=== PATIENT | female | born 1960 | race Caucasian/White ===

== ENCOUNTER 2018-08-15 12:23 | Emergency (ER) | payer BC, SELFPAY ==
[2018-08-15] VITALS (38 sets, daily range): BP systolic 126–146; BP diastolic 60–78; PULSE 87–107; RESP 10–33; TEMP 37.2; O2SAT 95–100
--- NOTE | 2018-08-15 12:27 | NUR.NOTE ---
Nursing Note: PT HAS BEEN THROWING UP for the past 2 days and states that she is withdrawing from her antidepressant medications
--- NOTE | 2018-08-15 12:43 | W.ED.GENAD ---
Discharge Plan Disposition Patient Disposition: HOME Condition: Improving Discharge Details Chief Complaint: Nausea/Vomit/Diar Clinical Impression: Nausea and vomiting, UTI (urinary tract infection) Primary Care Provider: Alexia,Local ED Provider: Sabrina Maldonado Home Meds and New Rx's Prescriptions: New ondansetron 4 mg tablet,disintegrating 4 mg PO QID PRN (Reason: nausea and vomiting) Qty: 10 RF: 0 cephalexin [Keflex] 500 mg capsule 500 mg PO BID Qty: 10 RF: 0 Continued bupropion HCl 150 MG tablet extended release 12 hr 150 mg PO BID RF: 0 sumatriptan succinate 100 mg Tablet 150 mg PO PRN PRNRF: 0 venlafaxine 150 mg Capsule,Extended Release 24hr 150 mg PO DAILY RF: 0 amitriptyline 25 mg Tablet 25 mg PO DAILY RF: 0 Discharge Instructions Instructions: Urinary Tract Infection in Women (ED), Acute Nausea and Vomiting (ED) Additional Instructions: Encourage hydration. Use Zofran as prescribed for any recurrent nausea or vomiting. Please take Keflex as prescribed for urinary tract infection. Please follow-up with primary care next week for reevaluation. If you develop fever/chills, abdominal pain, inability stay hydrated or other new/worsening symptoms please seek care urgently once again. Discharge Data Discharge Date/Time-TO BE ENTERED AT DEPARTURE: 08/15/18 16:11 Medical Decision Making Patient is a 58-year-old female presents today with chief complaint of nausea and vomiting. Patient is coming by her son. Patient appears to be having panic attack at this time. She is tachypneic, tachycardic. She is endorsing numbness in her hands and her feet. Son reports that the panic attack she exhibiting it is not unusual for her. He reports that she has multiple of these weekly and typically is able to manage his home. Their primary concern today is her nausea and vomiting. Reports that she started having nausea vomiting last night. States that she drank 1-1/2 Gatorade today, was able to hold most of this down. Is also concerned that she may be withdrawing from her antidepressants as she has been vomiting. States that she did take this morning, with several hours between untreated medications and her next episode of vomiting. She has not been around any sick contact that she is aware of. No recent travel. Abdomen is benign on exam, no peritoneal findings. Because this is likely infectious source. Will obtain laboratory evaluation to evaluate for any possible electrolyte abnormalities and hydrate the patient. Labs are concerning for an elevated anion gap of 20.4. Potassium is low at 3.1. Patient is currently receiving fluids. We will hold off on replenishing her potassium as her nausea is currently under control after IV Zofran. Patient quickly calmed down after being in the department is now cognitively appropriate. She reports that these anxiety attacks are typical for her and unchanged from her baseline. Urinalysis is concerning for UTI. Discussed these findings with patient. Advised that this may be exacerbating her chronic mental status. Plan to place her on Keflex. Patient is received 2 L of fluids, will repeat BMP Repeat BMP showed resolved elevation of anion gap as well as increased potassium. Did not replenish potassium but without treatment, is now 3.6. Discussed these findings with the patient. Advised is consistent with an acute illness as well as a UTI. Plan to treat UTI with Keflex as well as offer Zofran for any recurrence of her symptoms. She was given strict return precautions. Encourage hydration. Her son is with her and will continue to help her hydrate at home. Advise follow-up with primary care next week for reevaluation. Do not feel that the patient is withdrawing from medications given the length of time she was able to keep these down. All of her questions and concerns were addressed today and she is in agreement this plan. Patient's primary care is in [place], she prefers to keep this set up the way it is and will contact them Friday to schedule follow-up HPI General Mode of arrival: ambulatory. Date/Time Provider Initiated Documentation: 08/15/18 12:30. Limitations to Documentation: no limitations. Information obtained by: patient, family and RN notes reviewed. History of Present Illness 58 year old F presents to the emergency department with the chief complaint of nausea/vomiting, described as moderate, with intensity rated at 1 (not endorsing pain at this time). Patient started experiencing this day(s) (1) and it has been constant. No relieving factors improve symptom(s), No exacerbating factors reported . Patient notes loss of appetite, nausea/vomiting and shortness of breath (hyperventilating); denies chest pain, cough, fever/chills, headaches, malaise, rash, syncope and weakness. Patient did receive the following treatments prior to arrival, none Related Data Home Medications Medication Instructions Recorded Confirmed bupropion HCl 150 mg PO BID 04/27/17 08/15/18 amitriptyline 25 mg PO DAILY 08/15/18 08/15/18 cephalexin [Keflex] 500 mg PO BID #10 cap 08/15/18 ondansetron 4 mg PO QID PRN #10 tab 08/15/18 sumatriptan succinate 150 mg PO PRN PRN 08/15/18 08/15/18 venlafaxine 150 mg PO DAILY 08/15/18 08/15/18 Previous Rx's Medication Instructions Recorded cephalexin [Keflex] 500 mg PO BID #10 cap 08/15/18 ondansetron 4 mg PO QID PRN #10 tab 08/15/18 Allergies Allergy/AdvReac Type Severity Reaction Status Date / Time No Known Allergies Allergy Unverified 04/27/17 01:31 General Stated Complaint: Nausea/Vomit/Diar ISMA: 2 Review of Systems Constitutional Reports as per HPI, Denies chills, Denies fatigue, Denies fever(s), Denies headache(s), Denies lethargy and Reports poor appetite ENT Denies headache(s) Cardiovascular Reports as per HPI, Denies chest pain, Denies dyspnea and Denies dyspnea on exertion Respiratory Reports as per HPI, Denies cough, Denies dyspnea and Denies dyspnea on exertion Gastrointestinal Reports as per HPI, Denies abdominal pain, Denies melena, Denies change in stool character, Denies coffee ground emesis, Reports nausea, Reports vomiting and Denies hematemesis Genitourinary Reports amenorrhea (postmenopausal), Denies dysuria, Denies flank pain, Denies urinary incontinence, Reports urinary urgency and Denies vaginal discharge Musculoskeletal Reports as per HPI, Denies abnormal gait and Denies back pain Integumentary/Breasts Reports as per HPI and Denies rash Neurologic Reports as per HPI, Denies abnormal gait, Denies behavioral changes and Denies headache(s) Psychiatric Reports anxiety, Denies behavioral changes, Reports auditory hallucinations, Denies hopelessness, Reports irritability, Reports mood swings, Reports panic attacks, Denies homicidal ideation and Denies suicidal ideation Endocrine Denies fatigue [facility] Social History Smoking/Tobacco Use Status: Never Do you feel safe at home: Yes Do you feel safe in your relationship?: Yes Exam Const General: healthy appearing, well developed, well groomed, in distress severe (patient appears to be panicing, tachypnic, shaking) and anxious Nutritional Appearance: average body habitus and well nourished Orientation: alert, awake and oriented x3 HENMT Head: normal to inspection Mouth: moist mucous membranes Resp Effort & Inspection: normal respiratory effort, able to speak in complete sentences and no respiratory distress Auscultation: clear to auscultation bilaterally, no rales, no rhonchi and no wheezes Cardio Rate: regular rate Rhythm: regular rhythm Heart Sounds: S1 normal and S2 normal GI Inspection: normal to inspection, no edema, non-distended, no incisions and no visible herniation Palpation: soft, no hepatosplenomegaly, not firm, no guarding, not rigid and nontender Percussion: normal to percussion Auscultation: normal bowel sounds Back/Spine/Pelvis Back: no CVA tenderness Skin General skin exam: no rashes or lesions noted Trauma: no lacerations or abrasions Neuro General: alert and awake Cognition: normal cognition Speech: speech normal Gait: normal gait Extrem General: normal to inspection, no pedal edema, no calf tenderness and normal gait Psych Appearance: grossly normal and well kempt Mental Status: mental status grossly normal (patient is panicing) Speech and Movement: agitated, speech clear and restless Mood: anxious mood and labile mood Affect: anxious affect Attitude: cooperative and avoids eye contact Thought Process: flight of ideas Course Vital Signs Temperature 37.2 C 08/15/18 12:29 Pulse 102 H 08/15/18 12:29 Respiratory Rate 33 H 08/15/18 12:29 Blood Pressure 142/64 H 08/15/18 12:29 Pulse Oximetry 100 08/15/18 12:29 Temperature 37.2 C 08/15/18 12:29 Temperature Source Tympanic 08/15/18 12:29 Pulse 102 H 08/15/18 12:29 Respiratory Rate 33 H 08/15/18 12:29 Blood Pressure 142/64 H 08/15/18 12:29 Blood Pressure Position Sitting 08/15/18 12:29 Pulse Oximetry 100 08/15/18 12:29 Oxygen Delivery Method Room Air 08/15/18 12:29 Oxygen Flow Rate 0 08/15/18 12:29 Pain Level 0 08/15/18 12:29
[2018-08-15 12:49] LABS: Abs Immature Grans 0.03 k/cumm (0.0-0.09); Absolute Basophil Count 0.04 k/cumm (0.0-0.2); Absolute Lymphocyte Count 1.59 k/cumm (1.2-3.4); Absolute Monocyte Count 0.51 k/cumm (0.11-0.7); Absolute Neutrophil Count 8.08 k/cumm (1.2-6.7); Basophils % 0.4; HCT 38.4 % (36.0-46.0); HGB 13.9 g/dL (12.0-15.5); Immature Grans % 0.3; Lymphocytes % 15.5; Mean Corp. HGB Concentration 36.2 g/dL (32.0-36.0); Mean Corpuscular Hemoglobin 31.2 pg (27.0-33.0); Mean Corpuscular Volume 86.3 fL (80-95); Neutrophils % 78.8; Platelet Count 351 x1000/uL (130-400); RBC 4.45 m/cumm (4.00-5.20); RBC Distribution Width 12.2 % (11.7-14.6); White Blood Cell Count 10.25 k/cumm (4.4-10.8)
[2018-08-15] MEDS: Normal Saline 1,000 ML 1000 ML IV ×2 (12:49→13:56)
[2018-08-15] MEDS: LORazepam 2 MG/ML VIAL 0.5 MG IVP (12:49)
[2018-08-15] MEDS: Ondansetron 4 MG/2 ML VIAL IVP (12:49)
[2018-08-15 13:02] LABS: ALT 21 U/L (12-78); AST 14 U/L (15-37); Albumin 4.2 g/dL (3.4-5.0); Alkaline Phosphatase 120 U/L (46-116); Anion Gap 20.4 mmol/L (3-11); BUN 13 mg/dL (7-18); Bilirubin, Total 1.4 mg/dL (0.2-1.0); CO2 17.6 mmol/L (21.0-32.0); CREATININE 0.85 mg/dL (0.55-1.02); Calcium 9.7 mg/dL (8.5-10.1); Chloride 98 mmol/L (98-107); Glucose 227 mg/dL (70-100); Lipase 95 U/L (73-393); Potassium 3.1 mmol/L (3.5-5.1); Sodium 136 mmol/L (136-145); Total Protein 7.9 g/dL (6.4-8.2)
[2018-08-15 14:50] LABS: Bilirubin Negative (Negative); Blood Trace-intact (Negative); Clarity Cloudy; Glucose Negative (Negative); Ketones >=160 mg/dL (Negative); Leukocyte Esterase Trace (Negative); Nitrite Positive (Negative); Specific Gravity 1.015 (1.005-1.025); pH 8.5 (5-8)
[2018-08-15 15:05] LABS: RBC 0-2 (0-2)
[2018-08-15 15:06] LABS: Bacteria Many HPF (Negative); Crystals Moderate Amorphous HPF (Negative); Epithelial Cells Negative HPF (Negative); Mucus Negative (Negative)
[2018-08-15 15:07] LABS: C & S Indicated? Yes; Casts 0-2 Coarse Granular LPF (Negative)
[2018-08-15 15:20] LABS: Tricyclic Antidepressants POSITIVE (Negative)
[2018-08-15 15:23] LABS: *AMPHETAMINES SCREEN URINE Negative (Negative); *BARBITURATES SCREEN URINE Negative (Negative); *BENZODIAZEPINES SCREEN URINE Negative (Negative); Cannabinoids THC Negative (Negative); Cocaine Screen,Urine Negative (Negative); METHADONE URINE SCREEN Negative (Negative); OPIATES URINE SCREEN Negative (Negative)
[2018-08-15 15:40] LABS: Anion Gap 10.7 mmol/L (3-11); BUN 11 mg/dL (7-18); CO2 23.3 mmol/L (21.0-32.0); CREATININE 0.73 mg/dL (0.55-1.02); Calcium 8.3 mg/dL (8.5-10.1); Chloride 106 mmol/L (98-107); Glucose 137 mg/dL (70-100); Potassium 3.6 mmol/L (3.5-5.1); Sodium 140 mmol/L (136-145)
== END 2018-08-15 16:11 | disposition home or self-care (01) ==
PROVIDERS: Emergency Provider Physician Assistant
DX: R11.2 Nausea with vomiting, unspecified (principal); N39.0 Urinary tract infection, site not specified; B96.89 Other specified bacterial agents as the cause of diseases classified elsewhere
CPT/HCPCS: 36415; 80048; 80053; 80307; 83690; 87077; 96361; 96374; 96375; 99284; 81003; 81015; 85025; 87086; 87186; J2060; J2405

== ENCOUNTER 2018-09-29 19:40 | Emergency (ER) | payer BC, SELFPAY ==
[2018-09-29 19:49] VITALS: BP 136/82; PULSE 100; RESP 22; TEMP 37; O2SAT 99
--- NOTE | 2018-09-29 20:09 | ED.GENADUL_ITS ---
Discharge Plan Disposition Patient Disposition: HOME Condition: Good Discharge Details Chief Complaint: Nk/Back Pain Clinical Impression: Lumbago Primary Care Provider: Alexia,Local ED Provider: Jeromy Osman Home Meds and New Rx's Prescriptions: No Action bupropion HCl 150 MG tablet extended release 12 hr 150 mg PO BID RF: 0 sumatriptan succinate 100 mg Tablet 150 mg PO PRN PRNRF: 0 venlafaxine 150 mg Capsule,Extended Release 24hr 150 mg PO DAILY RF: 0 amitriptyline 25 mg Tablet 25 mg PO DAILY RF: 0 ondansetron 4 mg tablet,disintegrating 4 mg PO QID PRN (Reason: nausea and vomiting) Qty: 10 RF: 0 cephalexin [Keflex] 500 mg capsule 500 mg PO BID Qty: 10 RF: 0 HPI General Date/Time Provider Initiated Documentation: 09/29/18 19:53 . Related Data Home Medications Medication Instructions Recorded Confirmed bupropion HCl 150 mg PO BID 04/27/17 08/15/18 amitriptyline 25 mg PO DAILY 08/15/18 08/15/18 cephalexin [Keflex] 500 mg PO BID #10 cap 08/15/18 ondansetron 4 mg PO QID PRN #10 tab 08/15/18 sumatriptan succinate 150 mg PO PRN PRN 08/15/18 08/15/18 venlafaxine 150 mg PO DAILY 08/15/18 08/15/18 Previous Rx's Medication Instructions Recorded cephalexin [Keflex] 500 mg PO BID #10 cap 08/15/18 ondansetron 4 mg PO QID PRN #10 tab 08/15/18 Allergies Allergy/AdvReac Type Severity Reaction Status Date / Time No Known Allergies Allergy Unverified 04/27/17 01:31 General Stated Complaint: Nk/Back Pain ISMA: 4 PFSH Social History Smoking/Tobacco Use Status: Never Alcohol Intake: never Drug use: Never Substance use type: does not use Do you feel safe at home: Yes Do you feel safe in your relationship?: Yes Course Vital Signs Temperature 37.0 C 09/29/18 19:49 Pulse 100 H 09/29/18 19:49 Respiratory Rate 22 09/29/18 19:49 Blood Pressure 136/82 09/29/18 19:49 Pulse Oximetry 99 09/29/18 19:49 Temperature 37.0 C 09/29/18 19:49 Temperature Source Oral 09/29/18 19:49 Pulse 100 H 09/29/18 19:49 Respiratory Rate 22 09/29/18 19:49 Respiratory Effort Non-Labored 09/29/18 19:49 Blood Pressure 136/82 09/29/18 19:49 Blood Pressure Position Supine 09/29/18 19:49 Pulse Oximetry 99 09/29/18 19:49 Oxygen Delivery Method Room Air 09/29/18 19:49 Oxygen Flow Rate 0 09/29/18 19:49
[2018-09-29] MEDS: Lidocaine 5% Patch 1 PATCH TP (20:19)
[2018-09-29] MEDS: Cyclobenzaprine 10 MG TAB PO (20:19)
--- NOTE | 2018-09-29 20:24 | ED.GENADUL_ITS ---
Discharge Plan Disposition Patient Disposition: HOME Condition: Good Discharge Details Chief Complaint: Nk/Back Pain Clinical Impression: Lumbago Primary Care Provider: Alexia,Local ED Provider: Jeromy Osman Home Meds and New Rx's Prescriptions: New lidocaine [Lidoderm] 1 PATCH patch 1 patch Topical Q24H Qty: 7 RF: 0 cyclobenzaprine 10 mg tablet 10 mg PO TID Qty: 60 RF: 0 No Action bupropion HCl 150 MG tablet extended release 12 hr 150 mg PO BID RF: 0 sumatriptan succinate 100 mg Tablet 150 mg PO PRN PRNRF: 0 venlafaxine 150 mg Capsule,Extended Release 24hr 150 mg PO DAILY RF: 0 amitriptyline 25 mg Tablet 25 mg PO DAILY RF: 0 ondansetron 4 mg tablet,disintegrating 4 mg PO QID PRN (Reason: nausea and vomiting) Qty: 10 RF: 0 cephalexin [Keflex] 500 mg capsule 500 mg PO BID Qty: 10 RF: 0 Discharge Instructions Instructions: Low Back Strain (ED) Additional Instructions: You have a suspected strain of your lower back. Please use a heating pad as often as possible on your back. Please take the Lidoderm patch, and Flexeril as directed. Do not perform any driving, biking, shooting, or operating of any heavy machinery or swimming while on the Flexeril. Please take 1000 mg of Tylenol every 6 hours and 600 to 800 mg of ibuprofen every 6 hours to help with the pain and swelling. Please do not lift anything heavier than 3 to 5 pounds for the next 1 to 2 weeks. Please do mild stretches of your back forwards, backwards, left and right every 2-3 hours 5-6 times per day. If you notice any worsening of your symptoms, or any new symptoms such as numbness or tingling in your groin, weakness in your legs, inability to have a bowel or bladder movement, or loss of control of your bowels or bladder, vomiting, diarrhea, fever, chills, shortness of breath, chest pain, numbness, weakness, or fainting , please return immediately to the emergency department for reevaluation. Please follow up with your primary care provider as soon as possible for reassessment and reevaluation. As always, it was a pleasure participating in your medical care today. Medical Decision Making This is a pleasant 58-year-old female who presents today for evaluation of left-sided back pain. She was doing a significant amount of moving yesterday, she had no focal event that started her pain. She was fatigued and tired last night, but when she woke up this morning she demonstrated notable soreness in her left back. Worse with movement. No red flags of bowel or bladder incontinence, signs and symptoms are clinically consistent with cauda equina syndrome. No red flags of IV illicit drug use, trauma, or falls. Normal sensation normal reflexes throughout. Signs and symptoms are clinically consistent with musculoskeletal back sprain. We will give Lidoderm patch, Tylenol, Motrin, and Flexeril. We discussed red flags for when to not take Flexeril and the symptoms that he could cause. We discussed the importance of PCP follow-up, as well as red flags which to return. I have extensively reviewed the treatment plan and discharge instructions with the patient and their family. I have addressed all patient concerns at this time. The patient and family was made aware of what symptoms to monitor for that would warrant a return to the emergency department. Discussed the plan with the patient and family, they demonstrate verbal understanding and agreement with our assessment and plan at this time. HPI General Date/Time Provider Initiated Documentation: 09/29/18 19:53 . HPI Narrative: This is a 58-year-old female who presents for evaluation of left back pain. Patient states that yesterday she was moving a significant amount of furniture and possessions at her apartment, things are fine yesterday but she was notably tired with the fatigue back. This morning when she woke up she had an extremely stiff and painful back, primarily on the left. Is worse with movement. She had no associated numbness tingling or weakness. No radiation down the legs. She denies any falls, trauma, dysuria, hematuria, bowel or bladder incontinence, numbness tingling or weakness. She denies any IV or illicit drug use or fever. She denies any history of previous back injuries. She has no other complaints modifying factors. She has not taken any medications at this time for treatment. She denies any recent surgeries or pertinent family history. Related Data Home Medications Medication Instructions Recorded Confirmed bupropion HCl 150 mg PO BID 04/27/17 08/15/18 amitriptyline 25 mg PO DAILY 08/15/18 08/15/18 cephalexin [Keflex] 500 mg PO BID #10 cap 08/15/18 ondansetron 4 mg PO QID PRN #10 tab 08/15/18 sumatriptan succinate 150 mg PO PRN PRN 08/15/18 08/15/18 venlafaxine 150 mg PO DAILY 08/15/18 08/15/18 cyclobenzaprine 10 mg PO TID #60 tab 09/29/18 lidocaine [Lidoderm] 1 patch TOPICAL Q24H #7 patch 09/29/18 Previous Rx's Medication Instructions Recorded cephalexin [Keflex] 500 mg PO BID #10 cap 08/15/18 ondansetron 4 mg PO QID PRN #10 tab 08/15/18 cyclobenzaprine 10 mg PO TID #60 tab 09/29/18 lidocaine [Lidoderm] 1 patch TOPICAL Q24H #7 patch 09/29/18 Allergies Allergy/AdvReac Type Severity Reaction Status Date / Time No Known Allergies Allergy Unverified 04/27/17 01:31 General Stated Complaint: Nk/Back Pain ISMA: 4 Review of Systems Review of Systems All systems reviewed & are unremarkable except as noted in HPI and below PFSH Social History Smoking/Tobacco Use Status: Never Alcohol Intake: never Drug use: Never Substance use type: does not use Do you feel safe at home: Yes Do you feel safe in your relationship?: Yes Exam Narrative Exam Narrative: 1.Const: Well-nourished, Well-developed, appearing stated age 2.Eyes: PERRL, no conjunctival injection, and symmetrical lids. 3.ENT: Atraumatic external nose and ears. Moist MM. Neck: Symmetric, trachea midline, No thyromegaly. 4.CVS: +S1/S2, No murmurs or gallops. Peripheral pulses 2+ and equal in all extremities. Brisk capillary refill in all extremities. 5.RESP: Unlabored respiratory effort. Clear to auscultation bilaterally. No wheezes rales or rhonchi 6.GI: Soft, Nontender/Nondistended, No hepatosplenomegaly. No guarding or rebound. No significant flank or CVA tenderness. 7.MSK: Normocephalic/Atraumatic, Extremities w/o deformity or ttp No cyanosis or clubbing, Normal movement of all extremities. No midline tenderness to palpation over the CTLS spine. Notable left-sided paraspinal tenderness and spasm. Normal ROM in flexion, extension, side bend, and rotation. Patient has +5 out of 5 strength in the lower extremities in dorsiflexion and plantarfle xion, knee flexion and extension, hip flexion and extension. There is +2 over 2 dorsalis pedis pulses bilaterally. There is normal sensation to the skin with light touch at the foot, knee, and hip. Normal saddle sensation. Good sensation over the deep sural nerve area bilaterally. Rectal exam demonstrates normal rectal tone and normal perirectal sensation. Reflexes are +2 over 4 in the patellar reflex bilaterally. Normal strength for dorsiflexion of the great toe +5 out of 5 strength in the medial, ulnar, radial nerve distribution bilaterally in the hands as well as intact light touch sensation to these dermatomes on the hands 8.Skin: Warm, Dry. No rashes or lesions. 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 Sensation grossly intact, no focal neurologic deficits. 10.Psych: (AAO) x3. Appropriate mood and affect Course Vital Signs Temperature 37.0 C 09/29/18 19:49 Pulse 100 H 09/29/18 19:49 Respiratory Rate 22 09/29/18 19:49 Blood Pressure 136/82 09/29/18 19:49 Pulse Oximetry 99 09/29/18 19:49 Temperature 37.0 C 09/29/18 19:49 Temperature Source Oral 09/29/18 19:49 Pulse 100 H 09/29/18 19:49 Respiratory Rate 22 09/29/18 19:49 Respiratory Effort Non-Labored 09/29/18 19:49 Blood Pressure 136/82 09/29/18 19:49 Blood Pressure Position Supine 09/29/18 19:49 Pulse Oximetry 99 09/29/18 19:49 Oxygen Delivery Method Room Air 09/29/18 19:49 Oxygen Flow Rate 0 09/29/18 19:49
--- NOTE | 2018-10-02 09:35 | NUR.NOTE ---
Nursing Note: Patient called stating that the pain is not getting better and that it is getting worse and she would like to get just an xray. Consulted with Iliana Arauz RN and told the patient that due to increasing pain that she needed to be return to the ED for re-evaluation. Patient stated that she understood. Elizabeth Garza.
== END 2018-09-29 20:20 | disposition home or self-care (01) ==
PROVIDERS: Emergency Provider Student in an Organized Health Care Education/Training Program
DX: M54.5 Low back pain (principal)
CPT/HCPCS: 99283

== ENCOUNTER 2018-10-02 10:44 | Emergency (ER) | payer BC, SELFPAY ==
[2018-10-02 10:47] VITALS: BP 133/75; PULSE 101; RESP 16; TEMP 36.7; O2SAT 96
--- NOTE | 2018-10-02 12:30 | DI.RAD_ITS ---
SYMPTOMS/DIAGNOSIS: TRAUMA, POSTERIOR RIB PAIN T7-10 LEFT RIBS AND PA AND LATERAL: No priors. The heart size and pulmonary vasculature are within normal limits. The lungs are clear. No pneumothorax. There is small left pleural effusion. There is a nondisplaced fracture of the posterolateral aspect of the left ninth rib. IMPRESSION: 1. Nondisplaced fracture of the posterolateral aspect of the left ninth rib. 2. Small left pleural effusion. 3. No evidence of a pneumothorax.
--- NOTE | 2018-10-02 13:10 | NUR.NOTE ---
Nursing Note: pt requesting muscle relaxers. MARKETING RESEARCHER notified, states that he wants to wait for DI report.
[2018-10-02] MEDS: Ketorolac 60 MG/2 ML VIAL IM (13:25)
[2018-10-02] MEDS: Bupivacaine 0.25% Pres-Free 30 ML VIAL (15:00)
[2018-10-02] MEDS: Lidocaine 1% Multi-Dose 50 ML VIAL (15:00)
[2018-10-02] MEDS: Bupivacaine LIPOSOME/PF 133 MG/10 ML VIAL IJ (15:00)
--- NOTE | 2018-10-02 15:00 | NUR.NOTE ---
Nursing Note: Anesthesia at bedside for rib block
--- NOTE | 2018-10-02 15:16 | ED.GENADUL_ITS ---
Discharge Plan Disposition Patient Disposition: HOME Condition: Stable Discharge Details Chief Complaint: Nk/Back Pain Clinical Impression: Fracture of rib Primary Care Provider: Alexia,Local ED Provider: Homero Lin Home Meds and New Rx's Prescriptions: Continued cyclobenzaprine 10 mg tablet 10 mg PO TID Qty: 60 RF: 0 bupropion HCl 150 MG tablet extended release 12 hr 300 mg PO BID RF: 0 sumatriptan succinate 100 mg Tablet 150 mg PO PRN PRNRF: 0 venlafaxine 150 mg Capsule,Extended Release 24hr 75 mg PO DAILY RF: 0 amitriptyline 25 mg Tablet 25 mg PO DAILY RF: 0 Changed lidocaine [Lidoderm] 1 PATCH patch 1 patch Topical Q24H PRN (Reason: pain) Qty: 15 RF: 0 Discharge Instructions Instructions: Rib Fracture (ED) Additional Instructions: Please continue to take [id number] pain medication as needed and use Lidoderm patches for discomfort. Apply these to the most area of pain and allow to leave on for 12 hours at a time and then remove for 12 hours. If you start having fever chills, shortness of breath, or any worsening of symptoms feel free to return the emergency department for reassessment. Otherwise follow-up with your primary care provider as needed. Referrals: Primary Care Provider [Outside] (As needed for reassessment) Discharge Data Discharge Date/Time-TO BE ENTERED AT DEPARTURE: 10/02/18 16:10 Medical Decision Making Fall 4 days ago, patient came to the emergency department for complaint of back pain, was placed on Flexeril and lidocaine patch with [id number] pain medication which is not been helping. Patient continues to have pain and discomfort to posterior back. Patient has tenderness to posterior thoracic ribs T7-10 with point tenderness approximately 8 9. Lung sounds are clear, otherwise unremarkable exam. Plan to do radiological imaging for evaluation of possible rib fracture. Review of radiological imaging and radiologist interpretation shows a nondisplaced rib fracture of T9 posteriorly and very small pleural effusion. Given patient's significant amount of pain she was given IM Toradol and anesthesia was consulted for consideration of rib block. Anesthesia came down and consented patient for anesthesia block to help with discomfort. Rib block was performed and patient had significant reduction of pain. Did discuss with patient continued use of [id number]-fvk-eypyptj pain medication and prescribed lidocaine patches as needed for her continued discomfort once block wears off. Return precautions were discussed. After discussion of diagnosis and plan of care patient has no further needs, questions, or concerns and states clear understanding to return to the emergency department for any worsening symptoms. HPI General Mode of arrival: ambulatory . Date/Time Provider Initiated Documentation: 10/02/18 11:27 . Limitations to Documentation: no limitations . Information obtained by: patient, RN notes reviewed and old records reviewed . History of Present Illness 58 year old F presents to the emergency department with the chief complaint of Back pain, described as moderate, with intensity rated at 9. Quality is described as aching and sharp, and is localized to the back (right side). Patient started experiencing this day(s) (4) and it has been constant. Rest improves symptom(s), Movement worsens symptoms . Patient notes no other symptoms.. Patient did receive the following treatments prior to arrival, NSAID Related Data Home Medications Medication Instructions Recorded Confirmed bupropion HCl 300 mg PO BID 04/27/17 10/02/18 amitriptyline 25 mg PO DAILY 08/15/18 10/02/18 sumatriptan succinate 150 mg PO PRN PRN 08/15/18 10/02/18 venlafaxine 75 mg PO DAILY 08/15/18 10/02/18 cyclobenzaprine 10 mg PO TID #60 tab 09/29/18 10/02/18 lidocaine [Lidoderm] 1 patch TOPICAL Q24H PRN #15 each 10/02/18 Previous Rx's Medication Instructions Recorded cyclobenzaprine 10 mg PO TID #60 tab 09/29/18 lidocaine [Lidoderm] 1 patch TOPICAL Q24H PRN #15 each 10/02/18 Allergies Allergy/AdvReac Type Severity Reaction Status Date / Time No Known Allergies Allergy Unverified 04/27/17 01:31 General Stated Complaint: Nk/Back Pain ISMA: 3 Review of Systems Constitutional Denies chills and Denies fever(s) Cardiovascular Denies chest pain and Denies dyspnea on exertion Respiratory Denies cough and Denies dyspnea on exertion Gastrointestinal Denies abdominal pain, Denies change in bowel habits, Denies diarrhea and Denies vomiting Genitourinary Denies difficulty voiding and Denies urinary incontinence Musculoskeletal Reports as per HPI and Reports back pain Neurologic Denies sensory deficit PFSH Social History (Reviewed 10/05/18 @ 11:16 by DEE Queen Smoking/Tobacco Use Status: Never Alcohol Intake: never Drug use: Never Substance use type: does not use Do you feel safe at home: Yes Do you feel safe in your relationship?: Yes Exam Const General: cooperative and healthy appearing Orientation: alert, awake and oriented x3 Neck Neck: full ROM Resp Effort & Inspection: normal respiratory effort Auscultation: clear to auscultation bilaterally Cardio Rate: regular rate Rhythm: regular rhythm Heart Sounds: S1 normal and S2 normal Back/Spine/Pelvis Cervical Spine: normal cervical lordosis Thoracic/Lumbar Spine: pain with thoraco-lumbar ROM, paraspinal tenderness (Right lower thoracic spine), thoracic spinal tenderness and other (Posterior lower right rib tenderness to palpation) Pelvis: no pain with anterior-posterior compression, no pain with lateral compression, no buttock tenderness and no sciatic notch tenderness Course Vital Signs Temperature 36.7 C 10/02/18 10:47 Pulse 101 H 10/02/18 10:47 Respiratory Rate 16 10/02/18 10:47 Blood Pressure 133/75 10/02/18 10:47 Pulse Oximetry 96 10/02/18 10:47 Temperature 36.7 C 10/02/18 10:47 Temperature Source Skin 10/02/18 10:47 Pulse 101 H 10/02/18 10:47 Respiratory Rate 16 10/02/18 10:47 Blood Pressure 133/75 10/02/18 10:47 Blood Pressure Position Sitting 10/02/18 10:47 Pulse Oximetry 96 10/02/18 10:47 Oxygen Delivery Method Room Air 10/02/18 10:47 Oxygen Flow Rate 0 10/02/18 10:47 Pain Level 2 10/02/18 10:47 Comment 10/02/18 10:47
== END 2018-10-02 16:10 | disposition home or self-care (01) ==
PROVIDERS: Emergency Provider Nurse Practitioner Family
DX: S22.32XA Fracture of one rib, left side, initial encounter for closed fracture (principal); W01.0XXA Fall on same level from slipping, tripping and stumbling without subsequent striking against object, initial encounter
CPT/HCPCS: 64450; 76942; 96374; 99284; 71046; 71100; J1885

== ENCOUNTER 2019-09-30 00:30 | Emergency (ER) | payer BC, SELFPAY ==
[2019-09-30 00:28] VITALS: BP 128/76; PULSE 79; RESP 16; TEMP 36.5; O2SAT 100
--- NOTE | 2019-09-30 00:35 | ED.GENADUL_ITS ---
Discharge Plan Disposition Patient Disposition: HOME Condition: Stable Discharge Details Chief Complaint: Laceration Clinical Impression: Alcohol intoxication, Fall, Face lacerations Primary Care Provider: Alexia,Local ED Provider: Edi Carson Home Meds and New Rx's Prescriptions: Continued cyclobenzaprine 10 mg tablet 10 mg PO TID Qty: 60 RF: 0 buspirone 5 mg Tablet 5 mg PO TID RF: 0 bupropion HCl 150 MG tablet extended release 12 hr 300 mg PO BID RF: 0 sumatriptan succinate 100 mg Tablet 150 mg PO PRN PRNRF: 0 venlafaxine 150 mg Capsule,Extended Release 24hr 75 mg PO DAILY RF: 0 amitriptyline 25 mg Tablet 25 mg PO DAILY RF: 0 Discharge Instructions Instructions: Concussion (ED), Facial Laceration (ED) Additional Instructions: your cat scans did not reveal any concerning traumatic injuries return in 7-10 days for evaluation for suture removal do not drink alcohol with alprazolam or other sedating medications return to the emergency department for severe worsening pain, persistent vomit or difficulty breathing Medical Decision Making 59 yo female with hx of anxiety comes in after she had a few beers and took 1 of her alprazolam, was getting out of the shower when she fell. She arrives with EMS and is slurring her speech with smell of alcohol on her breath, does know her name year and where she is. HAs no focal motor or sensation deficits. Has skin abrasion over right judaism, no deep lacerations PERRL, eomi. Nochest tenderness, back tenderness abd tenderness or arm or leg tenderness. Given her fall with head injury will obtain ct head, face and c spine and also evaluate her alcohol level and evaluate for possible electrolyte abnormalities labs show etoh over [address] shows no acute findings. Her woud on her face after cleaning does reveal a 1cm laceration just lateral to the right orbit which I will close with sutures. Will d/c home in care of her son Differential Diagnosis Differential Diagnosis: alcohol intoxication, tbi,electrolyte abnormality Imaging Data Radiologic Study: Attestation: I personally reviewed and interpreted this imaging study as follows: Imaging: CT Scan Radiologist's impression: no acute findings Lab Data Lab results reviewed: Yes I reviewed the patient's lab results. HPI General Mode of arrival: EMS . Date/Time Provider Initiated Documentation: 07/30/20 00:33 . Limitations to Documentation: no limitations . Information obtained by: patient . History of Present Illness 59 year old F presents to the emergency department with the chief complaint of fall, described as moderate, and it has been constant. No relieving factors improve symptom(s), No exacerbating factors reported . Patient did receive the following treatments prior to arrival, none Related Data Home Medications Medication Instructions Recorded Confirmed bupropion HCl 300 mg PO BID 04/27/17 09/30/19 amitriptyline 25 mg PO DAILY 08/15/18 09/30/19 sumatriptan succinate 150 mg PO PRN PRN 08/15/18 09/30/19 venlafaxine 75 mg PO DAILY 08/15/18 09/30/19 cyclobenzaprine 10 mg PO TID #60 tab 09/29/18 09/30/19 buspirone 5 mg PO TID 09/30/19 09/30/19 Previous Rx's Medication Instructions Recorded cyclobenzaprine 10 mg PO TID #60 tab 09/29/18 Allergies Allergy/AdvReac Type Severity Reaction Status Date / Time No Known Allergies Allergy Unverified 04/27/17 01:31 General ISMA: 3 Review of Systems All systems reviewed & are unremarkable except as noted in HPI and below Constitutional Constitutional: Denies chills, Denies fever(s) and Denies weakness Cardiovascular Cardiovascular: Denies chest pain and Denies dyspnea Respiratory Respiratory: Denies cough and Denies dyspnea Gastrointestinal Gastrointestinal: Denies abdominal pain, Denies nausea and Denies vomiting Genitourinary Genitourinary: Denies dysuria Musculoskeletal Musculoskeletal: Denies joint swelling Integumentary/Breasts Skin/Breast: Denies rash Neurologic Neurologic: Denies weakness Psychiatric Psychiatric: Denies depression [facility] Social History Smoking/Tobacco Use Status: Never Alcohol Intake: current Alcohol type: beer Drug use: Never Substance use type: does not use Do you feel safe at home: Yes Do you feel safe in your relationship?: Yes Exam Const General: no acute distress Orientation: alert HENMT Head: no palpable skull fracture Ears: external ears normal General nose exam: external nose normal Mouth: moist mucous membranes Eyes General: appearance normal, both eyes and all related structures Neck Neck: normal visual inspection Resp Effort & Inspection: normal respiratory effort and able to speak in complete sentences Cardio Rate: regular rate Skin General skin exam: no rashes or lesions noted Neuro General: patient alert Extrem General: normal to inspection Psych Mental Status: mental status grossly normal Procedures Laceration Laceration 1: Site: face Side (If applicable): right Size (cm): 1 Description: linear Depth: simple, single layer Local Anesthetic: Lidocaine 2% Amount of anesthesia used (mL): 4 Pre-repair: wound explored and irrigated extensively Skin layer closed with: nylon Size (cm): 5-0 Number of sutures: 3
[2019-09-30 00:51] LABS: Abs Immature Grans 0.02 10^3/uL (0.0-0.06); Absolute Basophil Count 0.05 10^3/uL (0.0-0.2); Absolute Eosinophil Count 0.22 10^3/uL (0.0-0.7); Absolute Lymphocyte Count 2.17 10^3/uL (1.2-3.4); Absolute Neutrophil Count 5.88 10^3/uL (1.2-6.7); Basophils % 0.6; Eosinophils % 2.5; HCT 38.4 % (36.0-46.0); HGB 13.3 g/dL (11.2-15.7); Immature Grans % 0.2; Lymphocytes % 24.5; MCH 31.5 pg (27.0-33.0); MCHC 34.6 % (32.0-36.0); MPV 9.2 fL (8.0-11.0); Monocytes % 5.7; Neutrophils % 66.5; Platelet Count 278 10^3/uL (130-400); RBC 4.22 10^6/uL (3.93-5.22); RDW 12.3 % (11.7-14.6); RDW-SD 40.7 fL; WBC 8.84 10^3/uL (4.4-10.8)
--- NOTE | 2019-09-30 00:55 | NUR.NOTE ---
Addendum entered by Varsha Bergeron 09/30/19 01:10: correction Kiran phone number [phone] Original Note: Son Kiran [phone]
--- NOTE | 2019-09-30 01:01 | DI.CT_ITS ---
EXAM: CT HEAD CERV SPINE FACIAL WO CLINICAL HISTORY: fall, altered, pain. TECHNIQUE: Imaging Protocol: Axial computed tomography images with coronal and sagittal reformatted images were created and reviewed COMPARISON: No exams were available for comparison FINDINGS: CT Head: Ventricles and Extra axial spaces: Normal in size and morphology for the patient's age. Hemorrhage: None. Cerebral parenchyma: Normal. Midline shift: None. Brainstem/Cerebellum: Normal. Calvarium: Normal. Visualized Paranasal sinuses/Mastoids: Clear. Soft Tissues: Unremarkable. CT Face: Facial Bones: No definite fracture is noted in facial bones. Sinuses and Mastoids: Unremarkable. Globes, extraocular muscles, optic nerves and retrobulbar fat: Normal. Upper aerodigestive tract: Normal. Mandible and bilateral temporomandibular joints: Normal. Soft tissues: There is mild swelling over the right orbit and right zygoma. CT Cervical Spine: Bones: No acute fracture or subluxation. Soft Tissues: Unremarkable. IMPRESSION: 1. No acute intracranial process. 2. No acute fracture or subluxation in the cervical spine. 3. No acute facial fracture. RADIATION DOSE DELIVERED: 1,857.06mGy.cm DATA REPOSITORY: All CT scans at this facility are submitted to the National Radiology Data Registry (NRDR) Dose Index Registry (DIR) with the [employer] ([employer]). RADIATION OPTIMIZATION: All CT scans at this facility use at least one of these dose optimization te chniques: automated exposure control; mA and/or kV adjustment per patient size (includes targeted exa ms where dose is matched to clinical indication); or iterative reconstruction.
[2019-09-30 01:04] LABS: PTT Activated 25.2 sec (21.0-31.4); Prothrombin Time 10.1 sec (9.3-11.0)
[2019-09-30 01:14] LABS: ALT 22 U/L (14-59); AST 23 U/L (15-37); Albumin 3.9 g/dL (3.4-5.0); Alkaline Phosphatase 90 U/L (46-116); Anion Gap 11.3 mmol/L (3-11); BUN 11 mg/dL (7-18); Bilirubin, Total 0.5 mg/dL (0.2-1.0); CO2 27.7 mmol/L (21.0-32.0); CREATININE 0.82 mg/dL (0.55-1.02); Calcium 9.2 mg/dL (8.5-10.1); Chloride 99 mmol/L (98-107); ETHANOL BLOOD 255.3 mg/dL (<3); Glucose 122 mg/dL (74-106); Potassium 3.5 mmol/L (3.5-5.1); Sodium 138 mmol/L (136-145); Total Protein 7.4 g/dL (6.4-8.2)
[2019-09-30 01:16] LABS: Creatine Kinase 110 U/L (26-192)
--- NOTE | 2019-09-30 01:34 | NUR.NOTE ---
pt arrives with bag of medications. states she took a xanax and drank 6 beers tonight. Pt noted to have a bottle of xanax 2mg tabs in med bag for a pet, Rayna Penn. Spoke with pt son Kiran to updte on plan. He states pt had no c/o today, she starts to slur her speech after she takes her meds and has some drinks, tonight was worse than usual.
--- NOTE | 2019-09-30 01:42 | DI.VRAD_ITS ---
PROCEDURE INFORMATION: Exam: CT Head Without Contrast Exam date and time: 09/30/2019 12:35 AM Age: 59 years old Clinical indication: Injury or trauma; Fall; Initial encounter; Consciousness not specified; Blunt trauma (contusions or hematomas) and laceration; Orbit/periorbital; Right; Without residual foreign body; Injury date: 09/30/19; Injury details: Altered mental status TECHNIQUE: Imaging protocol: Computed tomography of the head without contrast. Radiation optimization: All CT scans at this facility use at least one of these dose optimization techniques: automated exposure control; mA and/or kV adjustment per patient size (includes targeted exams where dose is matched to clinical indication); or iterative reconstruction. COMPARISON: No relevant prior studies available. FINDINGS: Brain: Normal. No hemorrhage. Unremarkable white matter. No mass effect. Ventricles: Normal. No ventriculomegaly. Bones/joints: Unremarkable. No acute fracture. Sinuses: Visualized sinuses are unremarkable. No fluid levels. Mastoid air cells: Visualized mastoid air cells are well aerated. Soft tissues: Unremarkable. IMPRESSION: No acute intracranial abnormality. PROCEDURE INFORMATION: Exam: CT Maxillofacial Without Contrast Exam date and time: 09/30/2019 12:35 AM Age: 59 years old Clinical indication: Injury or trauma; Fall; Initial encounter; Consciousness not specified; Blunt trauma (contusions or hematomas) and laceration; Orbit/periorbital; Right; Without residual foreign body; Injury date: 09/30/19; Injury details: Altered mental status TECHNIQUE: Imaging protocol: Computed tomography images of the face without contrast. Radiation optimization: All CT scans at this facility use at least one of these dose optimization techniques: automated exposure control; mA and/or kV adjustment per patient size (includes targeted exams where dose is matched to clinical indication); or iterative reconstruction. COMPARISON: No relevant prior studies available. FINDINGS: Orbits: Orbits are normal. Globes are unremarkable. Bones/joints: No acute fracture. Sinuses: Normal. No air-fluid levels. Soft tissues: Mild soft tissue edema and hemorrhage is seen along the right lateral orbit. IMPRESSION: Mild soft tissue edema and hemorrhage along the right lateral orbit without evidence for an injury to the intraorbital contents. No evidence for acute maxillofacial fracture. PROCEDURE INFORMATION: Exam: CT Cervical Spine Without Contrast Exam date and time: 09/30/2019 12:35 AM Age: 59 years old Clinical indication: Injury or trauma; Fall; Initial encounter; Consciousness not specified; Blunt trauma (contusions or hematomas) and laceration; Orbit/periorbital; Right; Without residual foreign body; Injury date: 09/30/19; Injury details: Altered mental status TECHNIQUE: Imaging protocol: Computed tomography images of the cervical spine without contrast. Radiation optimization: All CT scans at this facility use at least one of these dose optimization techniques: automated exposure control; mA and/or kV adjustment per patient size (includes targeted exams where dose is matched to clinical indication); or iterative reconstruction. COMPARISON: No relevant prior studies available. FINDINGS: Vertebrae: No acute fracture. Normal alignment. Discs/Spinal canal/Neural foramina: Diffuse cervical spondylosis is seen, most pronounced at C4-C5 and C5-C6, where severe bilateral neural foraminal stenosis is present. No evidence for spinal canal stenosis at any level. Soft tissues: Unremarkable. Lungs: Lung apices are normal. IMPRESSION: No evidence for acute fracture within the cervical spine. Dictated and Authenticated by: Shani Nowak MD. Ordering:DONIS Daley MD
[2019-09-30 02:46] VITALS: BP 128/68; PULSE 82; RESP 16; O2SAT 95
--- NOTE | 2019-09-30 02:49 | NUR.NOTE ---
wound sutured by MD Carson. Son Kiran in to vegetable picker pt. DC instructions reviewed with kiran. to exit via [place].
== END 2019-09-30 02:40 | disposition home or self-care (01) ==
PROVIDERS: Emergency Provider Emergency Medicine
DX: S01.111A Laceration without foreign body of right eyelid and periocular area, initial encounter (principal); S09.90XA Unspecified injury of head, initial encounter; W19.XXXA Unspecified fall, initial encounter; F10.120 Alcohol abuse with intoxication, uncomplicated; Y90.8 Blood alcohol level of 240 mg/100 ml or more
CPT/HCPCS: 12011; 36415; 80053; 82550; 90471; 99284; 70450; 70486; 72125; 80320; 85025; 85610; 85730; 99282

== ENCOUNTER 2020-10-05 01:01 | Emergency (ER) | payer BC, SELFPAY ==
[2020-10-05] VITALS (58 sets, daily range): BP systolic 80–159; BP diastolic 50–115; PULSE 68–89; RESP 0–21; TEMP 36.3; O2SAT 94–100
--- NOTE | 2020-10-05 00:45 | RT.EKG_ITS ---
APPROVED REPORT Exam: Resting ECG Reason for Exam: TCA overdose Patient Location: E HR:77 bpm ECG Measurements Heart Rate 77 AXIS MI 189 P 63 QRSd 103 QRS 45 QT 397 T 58 QTc 448 Conclusion Sinus rhythm...normal P axis, V-rate 60- 99. No STEMI. QRS 103. I have reviewed and interpreted ECG and agree with software generated interpretation.
--- NOTE | 2020-10-05 00:56 | W.ED.GENAD ---
Discharge Plan Disposition Patient Disposition: [facility] Condition: Critical Discharge Details Clinical Impression: TCA (tricyclic antidepressant) overdose of undetermined intent, Acute respiratory failure, Unresponsive, Abnormal ECG Primary Care Provider: Alexia,Local ED Provider: Marleny Marmolejo Home Meds and New Rx's Prescriptions: No Action cyclobenzaprine 10 mg tablet 10 mg PO TID Qty: 60 RF: 0 buspirone 5 mg Tablet 5 mg PO TID RF: 0 bupropion HCl 150 MG tablet extended release 12 hr 300 mg PO BID RF: 0 sumatriptan succinate 100 mg Tablet 150 mg PO PRN PRNRF: 0 venlafaxine 150 mg Capsule,Extended Release 24hr 75 mg PO DAILY RF: 0 amitriptyline 25 mg Tablet 25 mg PO DAILY RF: 0 Medical Decision Making 0100 -- 60-year-old female with a history of depression and previous suicide attempts presents per EMS after possible amitriptyline overdose. Per EMS arrival, patient initially was reported to be confused but talking to family but became unresponsive in route. Vitals within normal limits on arrival. Poor gag reflex. Pupils 2 to 3 mm. She is unresponsive and unable to answer questions. Oxygen saturation high 80s to low 90s, will place on nasal cannula oxygen with low threshold for intubation. ABG notes a pH of 7.2, PCO2 68.5, PO2 232. Patient given 0.4 mg Narcan IV x1 without response. Discussed with daughter and family friend in the waiting room and they state they found her with an empty bottle of amitriptyline nearby with the rest of her meds inside a bag. They are not aware of any alcohol or other drug use. 0130 -- Labs reviewed. Normal white blood cell count. Bicarb 32.9. Magnesium 2.5. Troponin negative. UDS positive for TCA and benzos. Patient intubated with use of glide scope, please see procedure note for details. Post intubation chest x-ray notes good position of ET tube. 0230 -- Case discussed with [facility] critical care -- accepts patient for transfer. Accepting physician Dr. Varela. There are no local medics that are able to transport patient to [facility]. [facility] not flying secondary to weather. [facility] will be available at approximately 630 to 7 AM. Discussed with dane and there will not be 2 medics available around 7 AM. Daughter informed of plan and agreeable. Patient has had multiple repeat EKGs every hour, QRS has not significantly changed and remained at 106. Patient has been given several doses of 1 mEq/kg bicarbonate IV. She otherwise has remained hemodynamically stable. Discussed with [facility] and CHRISTOS contreras will be here approximately 6:30 AM. Repeat ABG after some time post intubation notes improvement of pH 7.4, PCO2 53, vent settings adjusted accordingly. Medical Records Medical records reviewed: Yes I reviewed the patient's medical records. Imaging Data Radiologic Study: Radiologist's impression: XR Chest Exam date and time: 10/05/2020 12:56 AM Age: 60 years old Clinical indication: Other: Overdose TECHNIQUE: Imaging protocol: XR of the chest. Views: 1 view. COMPARISON: CR XR ribs LT w PA lat chest 10/02/2018 12:22 PM FINDINGS: Lungs: Unremarkable. No consolidation. Pleural spaces: Unremarkable. No pleural effusion. No pneumothorax. Heart/Mediastinum: Unremarkable. No cardiomegaly. Bones/joints: Unremarkable. IMPRESSION: No acute findings. XR Chest -- post intubation film Exam date and time: 10/05/2020 3:05 AM Age: 60 years old Clinical indication: Device placement; Ett placement (vent status); Patient HX: Post intubation TECHNIQUE: Imaging protocol: XR of the chest. Views: 1 view. COMPARISON: CR XR PORTABLE CHEST AP 10/05/2020 1:16 AM FINDINGS: Tubes, catheters and devices: NG tube tip overlies stomach. Endotracheal tube tip 2.3 cm above the gustavo. Lungs: Unremarkable. No consolidation. Pleural spaces: Unremarkable. No pleural effusion. No pneumothorax. Heart/Mediastinum: Unremarkable. No cardiomegaly. Bones/joints: Unremarkable. IMPRESSION: No acute finding. Lab Data Lab results reviewed: Yes I reviewed the patient's lab results. ECG Data Attestation: I personally reviewed and interpreted this ECG (s) as follows: Interpretation: 0100 --rate of 77, sinus, no acute ST elevation or depression. QRS 103. QTc 448. 0200 --rate of 79, sinus, no acute ST elevation or depression. QRS 106. QTc 473. 0317 --rate of 79, sinus, no acute ST elevation or depression. QRS 106. QTc 481. 0415 --rate of 76, sinus, no acute ST elevation or depression. QRS 106. QTc 473. HPI General Mode of arrival: EMS. Date/Time Provider Initiated Documentation: 10/05/20 01:15. Limitations to Documentation: altered mental status. Information obtained by: family and EMS. HPI Narrative: Morning patient is a 60-year-old female with a history of depression, previous suicide attempt, former alcohol abuse who presented for possible amitriptyline overdose. EMS reported that family checked on patient and she was confused and sleepy with an empty amitriptyline bottle at her bedside. Family states that patient has been living alone in [place]. They states she has had a previous suicide attempt with medication overdose in the past. Family noted that patient was confused but able to answer some questions upon their arrival. Upon EMS arrival to the scene, patient was unresponsive but breathing. Family denies any known alcohol or other drug use or any report of trauma. EMS also reports that patient has a history of taking her dogs Ativan in the past. Related Data Home Medications Medication Instructions Recorded Confirmed bupropion HCl 300 mg PO BID 04/27/17 09/30/19 amitriptyline 25 mg PO DAILY 08/15/18 09/30/19 sumatriptan succinate 150 mg PO PRN PRN 08/15/18 09/30/19 venlafaxine 75 mg PO DAILY 08/15/18 09/30/19 cyclobenzaprine 10 mg PO TID #60 tab 09/29/18 09/30/19 buspirone 5 mg PO TID 09/30/19 09/30/19 Previous Rx's Medication Instructions Recorded cyclobenzaprine 10 mg PO TID #60 tab 09/29/18 Allergies Allergy/AdvReac Type Severity Reaction Status Date / Time No Known Allergies Allergy Unverified 04/27/17 01:31 General ISMA: 3 Review of Systems Unobtainable due to mental status [facility] Medical History (Updated 10/05/20 @ 04:55 by Marleny Marmolejo DO) Depression Suicide attempt Surgical History (Updated 10/05/20 @ 04:56 by Marleny Marmolejo DO) History of right knee joint replacement Social History Smoking/Tobacco Use Status: Never Smoking risk assessment performed?: Yes Alcohol Intake: current Alcohol type: beer Drug use: Never Substance use type: does not use Do you feel safe at home: Yes Do you feel safe in your relationship?: Yes Exam Const Orientation: obtunded HENWA Head: normal to inspection Face and sinus: normal facial exam Mouth: other (poor gag reflex) Eyes General: appearance normal, both eyes and all related structures Pupils: pupil size bilaterally 3 Neck Neck: normal visual inspection and No submandibular swelling Lymphatic: no lymphadenopathy noted Chest Chest: normal inspection of the chest and no tenderness Resp Effort & Inspection: decreased respiratory effort Auscultation: clear to auscultation bilaterally Cardio Rate: regular rate Rhythm: regular rhythm GI Inspection: normal to inspection Palpation: soft, not firm, not rigid and nontender Back/Spine/Pelvis Thoracic/Lumbar Spine: thoracic and lumbar spine normal to inspection Skin General skin exam: no rashes or lesions noted Neuro General: patient obtunded Extrem General: normal to inspection, full ROM, capillary refill normal, no calf tenderness bilaterally and no edema Psych Appearance: grossly normal Procedures Intubation Time out performed: Yes sedative: Etomidate Mg Given: 20 paralytic: Succinylcholine Mg Given: 80 Laryngoscope: fiberoptic video scope ET Tube Size: 7.5 ET Tube Uncuffed: No Tube Secured Depth (cm): 24 Tube Secured Location: teeth Tube Placement Confirmation: visualized tube passing through cords, equal breath sounds bilaterally, no breath sounds over epigastrum and confirmation by capnometry Patient Tolerated Procedure: well Intubation Complications: none Critical Care Time Critical Care Time Critical Care Time: Yes Total Critical Care Time: 90 Attestation: I spent 90 minutes of critical care time with this patient. This does not include time spent on separately reported billable procedures.
[2020-10-05 01:07] LABS: Abs Immature Grans 0.02 10^3/uL (0.0-0.06); Absolute Basophil Count 0.06 10^3/uL (0.0-0.2); Absolute Eosinophil Count 0.25 10^3/uL (0.0-0.7); Absolute Lymphocyte Count 1.73 10^3/uL (1.2-3.4); Absolute Monocyte Count 0.52 10^3/uL (0.1-0.8); Absolute Neutrophil Count 5.47 10^3/uL (1.2-6.7); Basophils % 0.7; Eosinophils % 3.1; HGB 12.7 g/dL (11.2-15.7); Immature Grans % 0.2; Lymphocytes % 21.5; MCH 31.4 pg (27.0-33.0); MCHC 34.3 % (32.0-36.0); MCV 91.4 fL (80-95); MPV 9.7 fL (8.0-11.0); Monocytes % 6.5; Nucleated RBC 0 %; Platelet Count 226 10^3/uL (130-400); RBC 4.05 10^6/uL (3.93-5.22); RDW 11.9 % (11.7-14.6); RDW-SD 40.4 fL; WBC 8.05 10^3/uL (4.4-10.8)
[2020-10-05 01:21] LABS: ETHANOL BLOOD < 3.0 mg/dL (<3)
[2020-10-05 01:23] LABS: ALT 17 U/L (14-59); AST 10 U/L (15-37); Albumin 3.6 g/dL (3.4-5.0); Alkaline Phosphatase 68 U/L (46-116); Anion Gap 3.1 mmol/L (3-11); BUN 17 mg/dL (7-18); Bilirubin, Total 0.7 mg/dL (0.2-1.0); CO2 32.9 mmol/L (21.0-32.0); CREATININE 0.9 mg/dL (0.55-1.02); Calcium 9.8 mg/dL (8.5-10.1); Chloride 107 mmol/L (98-107); Glucose 131 mg/dL (74-106); Magnesium 2.5 mg/dL (1.8-2.4); Potassium 3.8 mmol/L (3.5-5.1); Sodium 143 mmol/L (136-145); Total Protein 6.7 g/dL (6.4-8.2); Troponin I < 0.05 ng/mL (<0.06)
--- NOTE | 2020-10-05 01:24 | DI.RAD_ITS ---
Exam(s) XR PORTABLE CHEST AP EXAM: XR PORTABLE CHEST AP CLINICAL HISTORY: overdose, r/o acute disease. TECHNIQUE: 2D digital imaging was performed. COMPARISON: CR XR ribs LT w PA lat chest from 10/02/2018 FINDINGS: Chest leads in place. Heart size is normal. The mediastinum is not widened. Lungs are clear. No infiltrates nor obvious pleural effusions. IMPRESSION: No acute pulmonary findings on this single AP portable view of the chest. DATA REPOSITORY: RADIATION DOSE DELIVERED: All CT scans at this facility use at least one of these dose optimization techniques: automated exposure control; mA and/or kV adjustment per patient size (includes targeted e xams where dose is matched to clinical indication); or iterative reconstruction.
[2020-10-05 01:25] LABS: Acetaminophen < 2 ug/mL (10-30); Salicylate < 2.8 mg/dL (<2.8)
[2020-10-05 01:38] LABS: Bilirubin Negative (Negative); Blood Negative (Negative); Clarity Sl Cloudy (Clear); Glucose Negative (Negative); Ketones Negative (Negative); Leukocyte Esterase Trace (Negative); Nitrite Negative (Negative); Specific Gravity 1.015 (1.005-1.025); Urobilinogen 0.2 EU/dL (Up TO 0.2); pH 6.5 (5-8)
--- NOTE | 2020-10-05 01:45 | RT.EKG_ITS ---
APPROVED REPORT Exam: Resting ECG Reason for Exam: unresponsive Patient Location: E HR:79 bpm ECG Measurements Heart Rate 79 AXIS [place] 196 P 69 QRSd 106 QRS 61 QT 413 T 63 QTc 473 Conclusion Sinus rhythm...normal P axis, V-rate 60- 99. No STEMI. QRS 106. QTc 473. I have reviewed and interpreted ECG and agree with software generated interpretation.
[2020-10-05 01:48] LABS: *AMPHETAMINES SCREEN URINE Negative (Negative); *BARBITURATES SCREEN URINE Negative (Negative); *BENZODIAZEPINES SCREEN URINE Positive (Negative); Bacteria Few HPF (Negative); C & S Indicated? No/Sq. Contamination; Cannabinoids THC Negative (Negative); Casts Negative LPF (Negative); Cocaine Screen,Urine Negative (Negative); Crystals Negative HPF (Negative); Epithelial Cells Many HPF (Negative); METHADONE URINE SCREEN Negative (Negative); Mucus Negative (Negative); OPIATES URINE SCREEN Negative (Negative); RBC 0-2 HPF (0-2)
[2020-10-05 01:49] LABS: Tricyclic Antidepressants Positive (Negative)
[2020-10-05 01:51] LABS: BE 3 mmol/L (-2-3); HCO3 30 mmol/L (22-26); pH 7.25 (7.35-7.45); pO2 232 mmHg (80-105)
[2020-10-05 01:54] LABS: FIO2L 2 L; Site Right Radial; pCO2 69 mmHg (35-45); sO2 > 99 % (95-98)
[2020-10-05] MEDS: Lactated Ringers 1,000 ML 1000 ML IV (02:28)
[2020-10-05] MEDS: Naloxone 0.4 MG/ML VIAL IVP (02:35)
[2020-10-05] MEDS: Sodium Bicarbonate 50 MEQ/50 ML SYR 60 MEQ IVP ×2 (02:50→05:07)
[2020-10-05] MEDS: Succinylcholine 200 MG/10 ML VIAL 80 MG IVP (02:52)
[2020-10-05] MEDS: Etomidate 20 MG/10 ML VIAL IVP (02:52)
--- NOTE | 2020-10-05 02:57 | DI.VRAD_ITS ---
PROCEDURE INFORMATION: Exam: XR Chest Exam date and time: 10/05/2020 12:56 AM Age: 60 years old Clinical indication: Other: Overdose TECHNIQUE: Imaging protocol: XR of the chest. Views: 1 view. COMPARISON: CR XR ribs LT w PA lat chest 10/02/2018 12:22 PM FINDINGS: Lungs: Unremarkable. No consolidation. Pleural spaces: Unremarkable. No pleural effusion. No pneumothorax. Heart/Mediastinum: Unremarkable. No cardiomegaly. Bones/joints: Unremarkable. IMPRESSION: No acute findings. Dictated and Authenticated by: Edi Valenzuela MD. Ordering:MONSE Farmer MD
[2020-10-05] MEDS: Sodium Bicarbonate 50 MEQ/50 ML SYR ×2 (03:00)
--- NOTE | 2020-10-05 03:00 | DI.RAD_ITS ---
Exam(s) XR PORTABLE CHEST AP POST LINE EXAM: XR PORTABLE CHEST AP POST LINE CLINICAL HISTORY: post intubation film. TECHNIQUE: 2D digital imaging was performed. COMPARISON: CR,XR XR PORTABLE CHEST AP from 10/05/2020 FINDINGS: Patient is intubated. Distal tip of the endotracheal tube is just above the gustavo. There is an NG tube in the stomach. Heart size is normal. The mediastinum is not widened. Lungs are clear. No infiltrates nor obvious pleural effusions. IMPRESSION: No acute pulmonary findings on this single AP portable view of the chest. ET tube distal tip is just above the gustavo. NG tube in stomach. DATA REPOSITORY: RADIATION DOSE DELIVERED: All CT scans at this facility use at least one of these dose optimization techniques: automated exposure control; mA and/or kV adjustment per patient size (includes targeted e xams where dose is matched to clinical indication); or iterative reconstruction.
--- NOTE | 2020-10-05 03:00 | RT.EKG_ITS ---
APPROVED REPORT Exam: Resting ECG Reason for Exam: tca overdose Patient Location: E HR:79 bpm ECG Measurements Heart Rate 79 AXIS [place] 208 P 58 QRSd 106 QRS 72 QT 418 T 58 QTc 481 Conclusion Sinus rhythm...normal P axis, V-rate 60- 99. Sinus. No STEMI. QRS 106. QTc 481. I have reviewed and interpreted ECG and agree with software generated interpretation.
[2020-10-05] MEDS: PROPOFOL 1,000 MG/100 ML BTL 17.7 MG (03:01)
--- NOTE | 2020-10-05 03:25 | DI.VRAD_ITS ---
PROCEDURE INFORMATION: Exam: XR Chest Exam date and time: 10/05/2020 3:05 AM Age: 60 years old Clinical indication: Device placement; Ett placement (vent status); Patient HX: Post intubation TECHNIQUE: Imaging protocol: XR of the chest. Views: 1 view. COMPARISON: CR XR PORTABLE CHEST AP 10/05/2020 1:16 AM FINDINGS: Tubes, catheters and devices: NG tube tip overlies stomach. Endotracheal tube tip 2.3 cm above the gustavo. Lungs: Unremarkable. No consolidation. Pleural spaces: Unremarkable. No pleural effusion. No pneumothorax. Heart/Mediastinum: Unremarkable. No cardiomegaly. Bones/joints: Unremarkable. IMPRESSION: No acute finding. Dictated and Authenticated by: Edi Valenzuela MD. Ordering:MONSE Farmer MD
--- NOTE | 2020-10-05 03:40 | NUR.NOTE ---
Pt arrived unresponsive, with a GCS of 6, but able to maintain airway initially. Pt remained unresponsive and started to become hypotensive at 0240, verbal order for intubation. Pt was oxygenated with the BVM while intubation medications were administered. Etomidate 20mg in 10ml pushed into R AC 20g IV and flushed at 0252. Succs 80mg in 4ml was pushed into 20g R AC at 0252 and flushed. Intubation at 0254 with a 7.5 ETT at 24cm at the teeth. Bilat breath sounds confirmed, 16f OG tube placed at 60cm at the lip and chest x-ray ordered. Pt tolerating well on a propofol gtt 50mcg/kg/min (17.7ml) Pt accepted at [facility] awaiting transport. Nursing Note:
[2020-10-05 03:42] LABS: Source Nasal/Nares
--- NOTE | 2020-10-05 04:00 | RT.EKG_ITS ---
APPROVED REPORT Exam: Resting ECG Reason for Exam: TCA overdose Patient Location: E HR:76 bpm ECG Measurements Heart Rate 76 AXIS DE 201 P 71 QRSd 106 QRS 69 QT 421 T 62 QTc 473 Conclusion Sinus rhythm...normal P axis, V-rate 60- 99. No STEMI. QRS 106. No change from previous.
[2020-10-05 04:30] LABS: COVID-19 PCR Negative (Negative)
[2020-10-05 06:04] LABS: BE 11 mmol/L (-2-3); HCO3 36 mmol/L (22-26); pCO2 54 mmHg (35-45); pH 7.43 (7.35-7.45); pO2 87 mmHg (80-105); sO2 97 % (95-98); tCO2 32 mmol/L (23-27)
[2020-10-05 06:05] LABS: Site Right Radial
[2020-10-05 06:06] LABS: FIO2 21 %
== END 2020-10-05 17:50 | disposition short-term general hospital (02) ==
PROVIDERS: Emergency Provider Physician Assistant
DX: T43.012A Poisoning by tricyclic antidepressants, intentional self-harm, initial encounter (principal); J96.00 Acute respiratory failure, unspecified whether with hypoxia or hypercapnia; R40.20 Unspecified coma; R94.31 Abnormal electrocardiogram [ECG] [EKG]; F32.9 Major depressive disorder, single episode, unspecified; R40.2430 Glasgow coma scale score 3-8, unspecified time; Z20.822 Contact with and (suspected) exposure to COVID-19; Z03.818 Encounter for observation for suspected exposure to other biological agents ruled out
CPT/HCPCS: 31500; 36415; 71045; 80053; 80307; 82805; 87635; 93005; 96361; 96365; 96366; 96374; 96375; 96376; 99291; 99292; 36600; 80320; 80329; 81003; 81015; 83735; 84484; 85025; 93010; J2310